=== PATIENT | female | born 1970 | race Caucasian/White ===

== ENCOUNTER 2019-07-20 15:34 | Emergency (ER) | payer SELFPAY ==
[~2019-07-20] VITALS: Ht 149.9 cm; Wt 65.8 kg
[2019-07-20 15:39] VITALS: BP 140/75
[2019-07-20] MEDS ORDERED: ONDANSETRON ODT 4 MG TAB PO ONE (17:30)
[2019-07-20] MEDS ORDERED: KETOROLAC TROMETH 60MG/2ML VIAL IM ONE (17:30)
== END 2019-07-20 18:07 | disposition home or self-care (01) ==
LOC: ER 15:34
DX: G43.909 Migraine, unspecified, not intractable, without status migrainosus (principal)
CPT/HCPCS: 96372; 99283; J1885; Q0162

== ENCOUNTER 2019-07-26 07:25 | Emergency (ER) | payer SELFPAY ==
[~2019-07-26] VITALS: Ht 149.9 cm; Wt 65.8 kg
[2019-07-26 09:02] VITALS: BP 118/92
== END 2019-07-26 11:20 | disposition home or self-care (01) ==
LOC: ER 07:25
DX: M54.5 Low back pain (principal); M53.3 Sacrococcygeal disorders, not elsewhere classified; Z88.1 Allergy status to other antibiotic agents; Z88.0 Allergy status to penicillin; Z88.8 Allergy status to other drugs, medicaments and biological substances
CPT/HCPCS: 72100; 72220

== ENCOUNTER 2019-08-03 07:24 | Emergency (ER) | payer SELFPAY ==
[~2019-08-03] VITALS: Ht 149.9 cm; Wt 65.8 kg
[2019-08-03 07:34] VITALS: BP 127/81
== END 2019-08-03 08:24 | disposition home or self-care (01) ==
LOC: ER 07:24
DX: S39.012D Strain of muscle, fascia and tendon of lower back, subsequent encounter (principal); Z88.0 Allergy status to penicillin; Z88.1 Allergy status to other antibiotic agents; Z88.8 Allergy status to other drugs, medicaments and biological substances; X58.XXXD Exposure to other specified factors, subsequent encounter